=== PATIENT | male | born 1930 | race Caucasian/White ===

== ENCOUNTER → 2016-10-13 | Outpatient (CLI) | payer MEDICARE ==
[~2016-10-13] MED LIST: AMBIEN10 MG ORAL; DILAUDID 11 MG/1 ML IV; DILAUDID1 MG/1 ML PO; DILAUDID2 MG ORAL; MIRTAZAPINE45 MG ORAL; RESTORIL30 MG ORAL; SYNTHROID25 MCG ORAL
--- NOTE | 2016-10-13 16:20 | Diagnostic Imaging Report ---
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 The left upper extremity was prepped with alcohol. All elements of maximal sterile barrier technique were followed including usage of a cap, mask, sterile gown, sterile gloves, hand hygiene and a large sterile sheet. Sonographic evaluation of the upper extremity was performed demonstrating a patent and compressible brachial vein. Access was obtained under real-time ultrasound guidance and digital image was saved and archived. An .018 wire was introduced. Needle exchanged for a 5 [place]istanian peel-away sheath. Measurements were obtained. A 5 [place]istanian dual-lumen Power PICC line catheter was cut to 8 cm and introduced over the wire. Peel-away sheath and wire were removed.Catheter was secured to the skin using 2-0 Prolene suture. Both ports aspirate and flush easily. Fluoroscopic Images show distal tip in the left axilla. Multiple attempts at passing a wire beyond the left axilla were unsuccessful. The catheter was cut short and left for peripheral access. Impression: Unsuccessful placement of an upper extremity PICC line catheter. A peripheral line was placed.
== END | disposition home or self-care (01) ==
LOC: RAD 13:00
DX: Z79.899 Other long term (current) drug therapy (principal)
CPT/HCPCS: 36569; 76937

== ENCOUNTER → 2016-10-22 | Outpatient (CLI) | payer MEDICARE ==
[~2016-10-22] VITALS: Ht 170.2 cm; Wt 77.1 kg
[~2016-10-22] MED LIST changes: +Heparin 2000 units/Ns 1000ml IV ONE; +Lidocaine 1% Plain 30 ml INJ ONE; +Sodium Bicarbonate 8.4% 50ml Inj IV ONE
--- NOTE | 2016-10-22 15:34 | Diagnostic Imaging Report ---
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 The right upper extremity was prepped with alcohol. All elements of maximal sterile barrier technique were followed including usage of a cap, mask, sterile gown, sterile gloves, hand hygiene and a large sterile sheet. Sonographic evaluation of the upper extremity was performed demonstrating a patent and compressible brachial vein. Access was obtained under real-time ultrasound guidance and digital image was saved and archived. An .018 wire was introduced. Needle exchanged for a 5 [place]ian peel-away sheath. Measurements were obtained. A 5 [place]ian dual-lumen Power PICC line catheter was cut to 40 cm and introduced over the wire. Peel-away sheath and wire were removed.Catheter was secured to the skin using 2-0 Prolene suture. Both ports aspirate and flush easily. Fluoroscopic Images show distal tip in the superior vena cava. Total fluoroscopic time 0.9 minutes Impression: Successful placement of an upper extremity PICC line catheter
== END | disposition home or self-care (01) ==
LOC: EDSTATUS 10:00 → RAD 10:15
DX: Z79.899 Other long term (current) drug therapy (principal)
CPT/HCPCS: 36569; 76937; 77001; J1644; J2001; J3490

== ENCOUNTER → 2016-10-31 | Outpatient (CLI) | payer MEDICARE, MEDICAID ==
[~2016-10-31] VITALS: Ht 30.5 cm; Wt 0.5 kg
[~2016-10-31] MED LIST changes: -Heparin 2000 units/Ns 1000ml IV ONE; +Heparin 2000 units/Ns 1000ml IV PRN; -Lidocaine 1% Plain 30 ml INJ ONE; +Lidocaine 1% Plain 30 ml INJ PRN; -Sodium Bicarbonate 8.4% 50ml Inj IV ONE; +Sodium Bicarbonate 8.4% 50ml Inj IV PRN
--- NOTE | 2016-10-31 15:43 | Diagnostic Imaging Report ---
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 The left upper extremity was prepped with alcohol. All elements of maximal sterile barrier technique were followed including usage of a cap, mask, sterile gown, sterile gloves, hand hygiene and a large sterile sheet. Sonographic evaluation of the upper extremity was performed demonstrating a patent and compressible brachial vein. Access was obtained under real-time ultrasound guidance and digital image was saved and archived. An .018 wire was introduced. Needle exchanged for a 5 [place]olese peel-away sheath. Measurements were obtained. A 5 Congolese dual-lumen Power PICC line catheter was cut to 10 cm and introduced over the wire. Peel-away sheath and wire were removed.Catheter was secured to the skin using 2-0 Prolene suture. Both ports aspirate and flush easily. Fluoroscopic Images show distal tip in the axillary vein. Impression: Unsuccessful placement of an upper extremity PICC line catheter. The line for peripheral use was placed
== END | disposition home or self-care (01) ==
LOC: RAD 10:00
DX: Z79.899 Other long term (current) drug therapy (principal)
CPT/HCPCS: 36569; 76937; J1644; J2001; J3490

== ENCOUNTER 2017-02-25 14:03 | Outpatient (RCR) | payer MEDICARE, MEDICAID ==
[~2017-02-25 14:03] MED LIST changes: -Heparin 2000 units/Ns 1000ml IV PRN; -Lidocaine 1% Plain 30 ml INJ PRN; -Sodium Bicarbonate 8.4% 50ml Inj IV PRN
== END 2017-03-23 | disposition home or self-care (01) ==
LOC: WCC 14:03
DX: L97.529 Non-pressure chronic ulcer of other part of left foot with unspecified severity (principal); Z89.512 Acquired absence of left leg below knee; Z89.511 Acquired absence of right leg below knee
CPT/HCPCS: 11042; 11043; G0463